=== PATIENT | male | born 1945 | race Caucasian/White ===

== ENCOUNTER 2018-03-25 04:50 | Inpatient (IN) ==
[2018-03-25] MEDS ORDERED: ceFAZolin 1 GM VIAL IV SCH (05:00)
[2018-03-25] MEDS ORDERED: DEXAMETHASONE 10 MG/ML VIAL ONE (07:30)
[2018-03-25] MEDS ORDERED: ePHEDrine 50 MG/ML AMPUL IV ONE (07:30)
[2018-03-25] MEDS ORDERED: KETAMINE 100 MG/ML ML ONE (07:30)
[2018-03-25] MEDS ORDERED: SUCCINYLCHOLINE 20 MG/ML ML IV ONE (07:30)
[2018-03-25] MEDS ORDERED: MIDAZOLAM 5 MG/5 ML VIAL ONE (07:30)
[2018-03-25] MEDS ORDERED: LIDOCAINE HCL/PF 100 MG/5 ML SYRINGE IV ONE (07:30)
[2018-03-25] MEDS ORDERED: fentaNYL 100 MCG/2 ML VIAL IV ONE (07:30)
[2018-03-25] MEDS ORDERED: ONDANSETRON 4 MG/2 ML VIAL ONE (07:30)
[2018-03-25] MEDS ORDERED: PROPOFOL 200 MG/20 ML VIAL IV ONE (07:30)
[2018-03-25] MEDS ORDERED: GLYCOPYRROLATE 0.2 MG/ML VIAL IV ONE (07:30)
[2018-03-25] MEDS ORDERED: GELATIN SPONGE,ABSORBABLE 1 GM POWDER TOPICAL ONE (09:00)
[2018-03-25] MEDS ORDERED: GELATIN SPONGE,ABSORBABLE 1 EACH SPONGE TOPICAL ONE (09:00)
[2018-03-25] MEDS ORDERED: THROMBIN (BOVINE) 5,000 UNIT VIAL TOPICAL ONE (09:00)
[2018-03-25] MEDS ORDERED: HEPARIN 20,000 UNIT/ML VIAL IR ONE (09:10)
[2018-03-25] MEDS ORDERED: CALCIUM GLUCONATE 4.65 MEQ/10 ML VIAL IV ONE (09:11)
--- NOTE | 2018-03-25 10:14 | XRay Report ---
CLINICAL INFORMATION: Surgery COMPARISON: None. FINDINGS: Lumbar spine demonstrates very slight levoscoliotic curve. There is minimal chronic wedging of the T10-T12 and all lumbar vertebral bodies due to mild chronic Scheuermann's disease with Schmorl's nodes invaginated all the vertebral endplates. Moderate T10-11, T11-T12 mild T11-T12 moderate T12-L1 and mild L4-5 degenerative disc disease appreciated. There are large anterior osteophytes in the lower thoracic spine. Moderate degenerative facet disease L5-S1. SI joints are normal. No soft tissue abnormalities IMPRESSION: Multilevel degenerative and mild chronic Scheuermann's disease in the lower thoracic and lumbar spine. Interpreted and Authenticated by: Charles Ortega 03/25/18
[2018-03-25] MEDS ORDERED: GUM MASTIC/STORAX/MSAL/ALCOHOL 1 DOSE DROPERETTE TOPICAL ONE (10:17)
[2018-03-25] MEDS ORDERED: MEPERIDINE 25 MG/ML SYRINGE IV PRN (11:21)
[2018-03-25] MEDS ORDERED: METOPROLOL TARTRATE 5 MG/5 ML VIAL IV PRN (11:21)
[2018-03-25] MEDS ORDERED: diphenhydrAMINE 50 MG/ML VIAL IV PRN (11:21)
[2018-03-25] MEDS ORDERED: ePHEDrine 50 MG/ML AMPUL IV PRN (11:21)
[2018-03-25] MEDS ORDERED: PROMETHAZINE 25 MG/ML VIAL IV PRN (11:21)
[2018-03-25] MEDS ORDERED: ONDANSETRON 4 MG/2 ML VIAL IV PRN ×2 (11:21→12:43)
[2018-03-25] MEDS ORDERED: METHOCARBAMOL 1,000 MG/10 ML VIAL IV PRN (11:21)
[2018-03-25] MEDS ORDERED: NALOXONE HCL 0.4 MG/ML VIAL IV PRN (11:21)
[2018-03-25] MEDS ORDERED: fentaNYL 100 MCG/2 ML VIAL IV PRN (11:21)
[2018-03-25] MEDS ORDERED: IPRATROPIUM/ALBUTEROL 3 ML AMPUL.NEB NEB PRN (11:21)
[2018-03-25] MEDS ORDERED: ATROPINE SULFATE 0.4 MG/ML VIAL IV PRN (11:21)
[2018-03-25] MEDS ORDERED: FLUMAZENIL 0.1 MG/ML ML IV PRN (11:21)
[2018-03-25] MEDS ORDERED: ACETAMINOPHEN 1,000 MG/100 ML BOTTLE IV ONE (11:21)
[2018-03-25] MEDS ORDERED: HYDROmorphone 2 MG/ML VIAL IV PRN (11:21)
[2018-03-25] MEDS ORDERED: LACTATED RINGERS 1,000 ML IV SCH (11:30)
--- NOTE | 2018-03-25 12:20 | XRay Report ---
CLINICAL INFORMATION: L4-S1 DECOMPRESSION AND FUSION COMPARISON: None. FINDINGS: Single lateral view from the OR shows metallic instrument overlying the superior aspect L4 vertebral body with a second metallic instrument overlying the mid L5 vertebral body. Lumbar spine is anatomically aligned. Degenerative changes are stable IMPRESSION: Metallic instruments overlying overlying mid L4-L5 vertebral bodies Interpreted and Authenticated by: Charles Ortega 03/25/18
--- NOTE | 2018-03-25 12:25 | XRay Report ---
CLINICAL INFORMATION: L4-S1 DECOMPRESSION FUSION COMPARISON: None. FINDINGS: A single lateral view from the OR shows L4-5 and L5-S1 anterior/posterior fusion changes provided by interbody grafts, pedicle screws and short interbody struts. Alignment is anatomic. No osseous abnormality. IMPRESSION: L4-5 and L5-S1 anterior/posterior fusion changes - anatomic alignment Interpreted and Authenticated by: Charles Ortega 03/25/18
--- NOTE | 2018-03-25 12:27 | XRay Report ---
CLINICAL INFORMATION: L4-S1 DECOMPRESSION FUSION COMPARISON: None. FINDINGS: Single lateral view from the OR shows pedicle screws at L4,, L5 and S1 with a single interbody strut anchoring the screws. Alignment is anatomic. IMPRESSION: L4-5 and L5-S1 anterior/posterior fusion in progress. Anatomic alignment Interpreted and Authenticated by: Charles Ortega 03/25/18
[2018-03-25] MEDS ORDERED: BUPIVACAINE 0.25% 50 ML VIAL IJ ONE (12:41)
[2018-03-25] MEDS ORDERED: BENZOCAINE/MENTHOL 1 LOZENGE PO PRN (12:43)
[2018-03-25] MEDS ORDERED: ONDANSETRON ODT 4 MG TABLET SL PRN (12:43)
[2018-03-25] MEDS: ceFAZolin 1 GM VIAL IV SCH ×2 (14:43→23:11)
[2018-03-25] MEDS: LACTATED RINGERS 1,000 ML IV SCH ×3 (14:43→21:35)
[2018-03-25] MEDS: HYDROCODONE/APAP 7.5/325MG TABLET PO PRN ×2 (17:26→21:34)
[2018-03-25] MEDS: DOCUSATE SODIUM 100 MG CAPSULE PO SCH (20:34)
[2018-03-25] MEDS: METHOCARBAMOL 750 MG TABLET PO PRN (23:21)
[2018-03-26] MEDS: HYDROCODONE/APAP 7.5/325MG TABLET PO PRN ×5 (02:30→22:40)
[2018-03-26 05:57] LABS: Blood Urea Nitrogen 17 mg/dl (8-23)
--- NOTE | 2018-03-26 07:48 | Orthopedic Progress Note ---
Subjective Patient information: Note initiated : 03/26/18 at 7:46 am Service Date, if different from initiated Date: [] Patient: Nima Reyes 73 y/o M admitted on 03/25/18 for L4-S1 Lumbar Deompression and Fusion. Chief Complaint: [S/P L4-S1 decompression and fusion] Patient is doing well and ambulates well with a walker. Denies any new onset lower extremity paresthesias/weakness. Principal diagnosis: S/P L4-S1 decompression and fusion Objective Vital signs: Vital Signs Temp Pulse Resp BP Pulse Ox 03/26/18 03:17 98.6 F 69 16 122/69 92 03/26/18 00:00 98.2 F 71 16 114/67 93 03/25/18 20:39 97 03/25/18 20:00 98.1 F 78 16 118/69 92 03/25/18 16:00 97.8 F 85 107/69 95 03/25/18 15:37 107/69 91 03/25/18 15:12 112/70 96 03/25/18 15:06 114/74 95 03/25/18 14:46 103/65 94 03/25/18 14:22 103/68 95 03/25/18 14:07 106/67 95 03/25/18 13:51 106/60 94 03/25/18 13:45 96 03/25/18 13:31 98.2 F 84 16 111/59 95 03/25/18 13:21 99.1 F H 77 14 111/64 91 03/25/18 13:11 98.1 F 80 15 103/67 92 03/25/18 13:00 98.8 F 85 16 115/67 91 03/25/18 12:50 98.5 F 90 16 116/64 95 03/25/18 12:45 81 14 105/62 99 03/25/18 12:40 81 14 102/59 03/25/18 12:37 98.6 F 82 16 104/58 99 Intake and Output 03/25/18 03/26/18 03/26/18 21:59 05:59 13:59 Intake Total 1303 / 1303 400 / 400 Output Total 475 / 475 1750 / 1750 375 / 375 Balance 828 / 828 -1350 / -1350 -375 / -375 Intake: IV 583 / 583 Lactated Ringers 1,000 ml @ 100 583 / 583 mls/hr IV .Q10H NIEVES Rx#: [id number] Oral 720 / 720 400 / 400 Output: Drainage 150 / 150 100 / 100 Back 150 / 150 100 / 100 Void Amount 325 / 325 1650 / 1650 375 / 375 Other: Meal Dinner Percent of Meal Consumed 100% Urine Appearance Clear Clear Clear Urine Color Dark Yellow Pale Bright Yellow Urine Odor Normal Normal Normal Weight 213 lb Intake & Output: Intake & Output 03/25/18 03/26/18 03/26/18 21:59 05:59 13:59 Intake Total 1303 / 1303 400 / 400 Output Total 475 / 475 1750 / 1750 375 / 375 Balance 828 / 828 -1350 / -1350 -375 / -375 Weight 213 lb Intake: IV 583 / 583 Lactated Ringers 1,000 ml @ 100 583 / 583 mls/hr IV .Q10H NIEVES Rx#: [id number] Oral 720 / 720 400 / 400 Output: Drainage 150 / 150 100 / 100 Back 150 / 150 100 / 100 Void Amount 325 / 325 1650 / 1650 375 / 375 Other: Meal Dinner Percent of Meal Consumed 100% Urine Appearance Clear Clear Clear Urine Color Dark Yellow Pale Bright Yellow Urine Odor Normal Normal Normal Incision: Yes healing, Yes clean and dry Incision clean and dry: Yes Dressing: Yes clean, Yes dry, Yes intact Weight bearing status: as tolerated Neurological exam IM: Yes alert, Yes oriented X3, Yes motor sensory intact, Yes neurovascular intact Extremities exam IM: Yes neurovascular intact - Labs CBC & BMP: 03/26/18 04:28 03/26/18 04:28 Labs: 03/26/18 04:28 Hgb 14.2 Hct 41.9 Assessment and Plan (1) S/P lumbar spinal fusion Ambulate with PT using brace. Discharge to home tomorrow. D/c drain tomorrow am prior to discharge. Status: Acute
[2018-03-26] MEDS: VIT A,C & E/LUTEIN/MINERALS TABLET PO SCH (08:53)
[2018-03-26] MEDS: DOCUSATE SODIUM 100 MG CAPSULE PO SCH ×2 (08:53→20:41)
[2018-03-26] MEDS: amLODIPine 10 MG TABLET PO SCH (08:54)
[2018-03-26] MEDS: HYDROCHLOROTHIAZIDE 25 MG TABLET PO SCH (08:54)
[2018-03-26] MEDS: FINASTERIDE 5 MG TABLET PO SCH (08:54)
[2018-03-26] MEDS: TAMSULOSIN 0.4 MG CAPSULE PO SCH (08:54)
[2018-03-26] MEDS: VITAMIN D3 5,000 UNIT CAPSULE PO SCH (08:54)
[2018-03-26] MEDS: MULTIVIT,THER IRON,CA,FA & MIN 1 TABLET PO SCH (08:54)
[2018-03-26] MEDS: LACTATED RINGERS 1,000 ML IV SCH ×2 (09:26→18:46)
[2018-03-26] MEDS: METHOCARBAMOL 750 MG TABLET PO PRN (14:37)
--- NOTE | 2018-03-26 16:29 | Discharge Summary ---
Providers - Providers Patient information: Note initiated : 03/26/18 at 4:27 pm Service Date, if different from initiated Date: [] Patient: Nima Reyes 73 y/o M admitted on 03/25/18 for L4-S1 Lumbar Deompression and Fusion. Chief Complaint: [] Date of admission: 03/25/18 Discharge date: 03/27/18 Attending physician: Gabriel Aggarwal Hospitalization Hospital course: transferred to [facility] PT mobilized uneventful Discharge diagnosis: spinal stenosis Exam - Exam Incision healing: Yes Clean and dry: Yes Weight bearing status: full Ortho Discharge - Spine - Patient Instructions Discharge Diet: Regular Diet Activity: activity as tolerated Spine Protocol: Limit bending and stooping. No heavy lifting. Wear brace/collar at all times except when showering and sleeping. Dressing Care: May shower in 2 days Additional Dressing Instructions: May Shower 48 hours post-operative and replace with dry dressing after shower. - Follow Up Plan Follow Up Appointments: Alexis Cason PA-C [Physician Scrubbing Machine Operator] - 04/09/18 11:00 am Disposition: Home, Self-Care Prognosis: Good Rehab Potential: Good I certify that the patient requires SNF services: No Overall status at discharge: patient is progressing back to baseline - Orders For Discharge Prescriptions: Hydrocodone/APAP 7.5/325Mg [Fishers 7.5-325Mg] 1 - 2 tab PO Q4HP PRN #50 tab PRN Reason: Pain Level 3-6 Pending Studies Resuscitation Status Full Code Diet Regular Diet Start SunMar 25 1710 Hydrocodone Bitart/Acetaminophen (Fishers 7.5/325mg) 0 tab PO Q4HP PRN PRN Reason: PAIN LEVEL 3-6 Last Admin: 03/26/18 11:59 Dose: 2 tab Admin: 03/26/18 07:11 Dose: 2 tab Admin: 03/26/18 02:30 Dose: 2 tab Admin: 03/25/18 21:34 Dose: 2 tab Admin: 03/25/18 17:26 Dose: 2 tab Amlodipine Besylate (Norvasc) 10 mg PO DAILY COUNTS INCLUDE 234 BEDS AT THE [facility] Last Admin: 03/26/18 08:54 Dose: 10 mg Docusate Sodium (Colace) 100 mg PO BID COUNTS INCLUDE 234 BEDS AT THE [facility] Last Admin: 03/26/18 08:53 Dose: 100 mg Admin: 03/25/18 20:34 Dose: 100 mg Finasteride (Proscar) 5 mg PO DAILY COUNTS INCLUDE 234 BEDS AT THE [facility] Last Admin: 03/26/18 08:54 Dose: 5 mg Hydrochlorothiazide (Oretic) 25 mg PO DAILY COUNTS INCLUDE 234 BEDS AT THE [facility] Last Admin: 03/26/18 08:54 Dose: 25 mg Lactated Ringer's (Lactated Ringers) 1,000 mls @ 100 mls/hr IV .Q10H COUNTS INCLUDE 234 BEDS AT THE [facility] Last Admin: 03/26/18 09:26 Dose: Admin: 03/25/18 21:35 Dose: Not Given Admin: 03/25/18 20:34 Dose: 100 mls/hr Infusion: 03/25/18 20:33 Dose: 100 mls/hr Admin: 03/25/18 14:43 Dose: 100 mls/hr Iron Carb/Multivit/Director Of Marketing/Folic Acid (Multivitamin W/Minerals) 1 tab PO DAILY COUNTS INCLUDE 234 BEDS AT THE [facility] Last Admin: 03/26/18 08:54 Dose: 1 tab Methocarbamol (Robaxin) 750 mg PO Q6HP PRN PRN Reason: Muscle Spasm Last Admin: 03/26/18 14:37 Dose: 750 mg Admin: 03/25/18 23:21 Dose: 750 mg Morphine Sulfate (Morphine) 0 mg IV Q1HP PRN PRN Reason: PAIN LEVEL > 6 Last Admin: 03/26/18 00:52 Dose: 2 mg Admin: 03/25/18 20:06 Dose: 2 mg Admin: 03/25/18 14:43 Dose: 2 mg Multivitamins/Minerals (Ocuvite) 1 tab PO DAILY COUNTS INCLUDE 234 BEDS AT THE [facility] Last Admin: 03/26/18 08:53 Dose: 1 tab Tamsulosin HCl (Flomax) 0.4 mg PO DAILY COUNTS INCLUDE 234 BEDS AT THE [facility] Last Admin: 03/26/18 08:54 Dose: 0.4 mg Vitamin D (Vitamin D3) 5,000 unit PO DAILY COUNTS INCLUDE 234 BEDS AT THE [facility] Last Admin: 03/26/18 08:54 Dose: 5,000 unit Shift Summary 03/26/18 03:38 Shift Summary by Panfilo Lopez on RA. Dressing to low back CDI. No complaints of numbness or tingling. ZORAN drain present, order to be charged for 20 min q2h and emptied q4h and as needed. Pain managed w/2mg morphine x3, 2 tab Fishers x2 and Robaxin x1. Up to BR multiple times w/FWW and SBA. Pt is able to log roll and lift self in and out of bed w/o assistance. IV to left hand. Voiding adequately per BR and urinal at bedside. PT to set up patient w/back brace today. Order to wear when ambulating in halls and sitting, can be up in room w/o brace on. Home meds have not been ordered but are listed in summary. SCDs in place t/o night. Uses IS w/ reminders. Pleasant and cooperative w/cares. Uses call light appropriately. Initialized on 03/26/18 03:38 - END OF NOTE
--- NOTE | 2018-03-26 16:45 | Operative Note ---
DATE OF OPERATION: 03/25/2018 PREOPERATIVE DIAGNOSIS: Lumbar stenosis with instability L4-L5, L5-S1. POSTOPERATIVE DIAGNOSIS: Lumbar stenosis with instability L4-L5, L5-S1. OPERATION PROPOSED: 1. Lumbar decompression with decompressed central canal, lateral recess, and neural foramen L4-L5, L5-S1. 2. Posterior segmental instrumentation L4 through S1. 3. Posterior/posterolateral fusion L4 through S1. 4. Application of prosthetic device interbody space and interbody fusion L4-L5, L5-S1. 5. Aspiration of iliac crest for osteoprogenitor cells, bilateral iliac crests. OPERATION PERFORMED: 1. Lumbar decompression with decompressed central canal, lateral recess, and neural foramen L4-L5, L5-S1. 2. Posterior segmental instrumentation L4 through S1. 3. Posterior/posterolateral fusion L4 through S1. 4. Application of prosthetic device interbody space and interbody fusion L4-L5, L5-S1. 5. Aspiration of iliac crest for osteoprogenitor cells, bilateral iliac crests. OPERATING SURGEON: Chaparro Aggarwal M.D. MANAGER SAP: Hong Hanna M.D. SECOND ORCHESTRA TEACHER: Alexis Cason PA-C. INDICATIONS: This is a gentleman who has had disabling claudication/radicular pain. He has failed conservative measures and elected to proceed with a lumbar decompression and fusion. OPERATION IN DETAIL: Informed consent was obtained. He was taken to the operating room. He was provided appropriate anesthetic and prophylactic antibiotics. He was carefully positioned. Back was prepped sterilely. Midline incision was made, and I dissected down to expose spinous process and lamina of S1. I dissected out and around the facet joints to expose the transverse process and the sacral ala L4 through S1. I placed a marker and radiographs obtained to confirm the level of dissection. The decompression was then performed by removing the interspinous ligament between L4-L5 and L5-S1. I removed the central portion of the lamina of L5, the inferior portion of L4, and the superior portion of S1. I debrided the hypertrophied ligamentum flavum. At the end of the decompression, the central canal, lateral recess, and neural foramen seemed very adequately patent. I then placed my posterior instrumentation, this being a pedicle screw construct. I identified the appropriate starting position. I passed a gearshift awl cannulating the pedicle. Each pedicle was then probed with a ball-tip whip to ensure there was no pedicle wall violation. I was also using EMG monitoring. After placing the hardware, I obtained radiographs and confirmed the position of the hardware. I then aspirated the iliac crest for osteoprogenitor cells by advancing a Jamshidi needle into the iliac crest bilaterally. I aspirated. After every 10 to 15 mL of aspirate, the needle was repositioned. The aspirate was passed to the back table and was spun down for osteoprogenitor cells. The application of prosthetic device interbody space and interbody fusion was performed by mobilizing the nerve root towards the midline. I then brought in dilators. By turning these dilators, I distracted across the disc spaces. The distraction was held with a working arden. I extensively curetted the disc space and debrided disc material. Once the disc material was debrided, I irrigated. I filled the disc space with morcellized bone graft. A cage also from scenios was filled with morcellized graft and impacted into the site prepared for it. I did an identical procedure at L4-L5 as L5-S1. Posterior/posterolateral fusion was performed. I extensively decorticated the posterolateral aspect of the spine. I packed morcellized bone graft into and against the decorticated posterolateral aspect of the spine to allow for fusion. The procedure was completed by compressing across the interbody graft. I tightened and torqued the arden into the top-loading pedicle screws. The wounds were closed over a deep drain with an 0 Vicryl interrupted fashion, 2-0 Vicryl inverted deep dermal, and a running subcuticular. The procedure was tolerated well. No complications. Estimated blood loss is 200 mL. [id number] Job ID: [id number] Doc ID: [id number] Gabriel Aggarwal MD
[2018-03-26] MEDS ORDERED: ATORVASTATIN 20 MG TABLET PO SCH (21:00)
[2018-03-27] MEDS: HYDROCODONE/APAP 7.5/325MG TABLET PO PRN ×2 (03:04→10:03)
[2018-03-27] MEDS: LACTATED RINGERS 1,000 ML IV SCH (03:17)
[2018-03-27] MEDS: METHOCARBAMOL 750 MG TABLET PO PRN (07:38)
[2018-03-27] MEDS: FINASTERIDE 5 MG TABLET PO SCH (09:57)
[2018-03-27] MEDS: TAMSULOSIN 0.4 MG CAPSULE PO SCH (09:58)
[2018-03-27] MEDS: amLODIPine 10 MG TABLET PO SCH (09:59)
[2018-03-27] MEDS: VITAMIN D3 5,000 UNIT CAPSULE PO SCH (10:01)
[2018-03-27] MEDS: DOCUSATE SODIUM 100 MG CAPSULE PO SCH (10:01)
[2018-03-27] MEDS: MULTIVIT,THER IRON,CA,FA & MIN 1 TABLET PO SCH (10:01)
[2018-03-27] MEDS: VIT A,C & E/LUTEIN/MINERALS TABLET PO SCH (10:01)
[2018-03-27] MEDS: HYDROCHLOROTHIAZIDE 25 MG TABLET PO SCH (10:02)
== END 2018-03-27 11:30 | disposition home or self-care (01) | DRG 460 ==
LOC: MEDSUR 04:50
PROVIDERS: ADMIT Orthopaedic Surgery Orthopaedic Surgery of the Spine; ATTEND Orthopaedic Surgery Orthopaedic Surgery of the Spine
PROC: LUMDECF (ICD-10-PCS; 2018-03-25 07:30)